=== PATIENT | male | born 1975 | race Caucasian/White ===

== ENCOUNTER → 2025-05-11 | Outpatient (CLI) | payer SELFPAY ==
--- NOTE | 2025-05-11 11:10 | US_ITS ---
PROCEDURE: TESTICULAR WITH ARTERIAL FLOW 05/11/2025 REASON FOR EXAM: ENLARGED right TESTICLE TECHNIQUE: TESTICULAR WITH ARTERIAL FLOW COMPARISON: None FINDINGS: RIGHT testicle: 3.5 cm x 2.9 cm x 1.4 cm Homogeneous echotexture. No intratesticular mass. Right epididymis: Is enlarged and measures 2.5 cm x 2.6 cm 1.6 cm. There are 2 epididymal cysts. The larger measures 2.5 cm x 2.6 cm 1.7 cm. LEFT testicle: 3.5 cm x 3 cm x 2.1 cm Homogeneous echotexture. No intratesticular mass. Left epididymis: Enlarged and measures 1 cm x 1.6 cm x 1.1 cm. There is evidence of a 1.3 cm x 1.6 cm x 1.2 cm epididymal cyst. Other findings: No hydrocele or large varicocele. US/Testicular with Arterial Flow IMPRESSION: Enlarged bilateral epididymis with epididymal cysts more prominent on the right side. Reading Location: [id number]
== END | disposition home or self-care (01) ==
DX: N44.8 Other noninflammatory disorders of the testis (principal); N50.811 Right testicular pain
CPT/HCPCS: 76870; 93976